=== PATIENT | male | born 1970 | race Caucasian/White ===

== ENCOUNTER 2018-02-05 06:06 | Emergency (ER) | payer BC ==
[2018-02-05] MEDS ORDERED: SODIUM CHLORIDE 0.9% 1,000 ML IV STA (06:42)
[2018-02-05] MEDS ORDERED: AZITHROMYCIN 500 MG in SODIUM CHLORIDE 0.9% 250 ML IVPB STA (06:44)
[2018-02-05] MEDS ORDERED: cefTRIAXone 2,000 MG in SODIUM CHLORIDE 0.9% 100 ML IVPB STA (06:44)
[2018-02-05] MEDS ORDERED: cefTRIAXone IN SWFI 2,000 MG/20 ML SYRINGE IVP STA (06:48)
--- NOTE | 2018-02-05 06:48 | ED ---
General Adult HPI - General Chief complaint: Dizziness Stated complaint: cough,headache Time Seen by Provider: 02/05/18 06:33 Source: patient Mode of arrival: ambulatory Limitations: no limitations - History of Present Illness Initial comments: 37 years old male has not been feeling well for the last 4 days, [address] off of work he felt feverish she was coughing he felt dizzy this morning it got worse he almost passed out he been coughing and been bringing up sputum and he is a smoker he has smoked for about 20 years now. He denies any chest pain he denies any pleuritic chest pain no abdominal pain no frequency urgency dysuria he denies any symptoms of TIA or CVA - Related Data Home Medications Medication Instructions Recorded Confirmed Dextroamphetamine/Amphetamine 15 mg PO QAM 02/05/18 02/05/18 [Adderall Xr] Previous Rx's Medication Instructions Recorded Oseltamivir [Tamiflu] 75 mg PO Q12HR #10 cap 02/05/18 Allergies Allergy/AdvReac Type Severity Reaction Status Date / Time No Known Allergies Allergy Verified 02/05/18 06:13 Review of Systems ROS Statement: Those systems with pertinent positive or pertinent negative responses have been documented in the HPI. ROS Other: All systems not noted in ROS Statement are negative. Past Medical History Past Medical History: No Reported History History of Any Multi-Drug Resistant Organisms: None Reported Past Surgical History: No Surgical Hx Reported Past Psychological History: No Psychological Hx Reported Smoking Status: Heavy tobacco smoker Past Alcohol Use History: Occasional Past Drug Use History: None Reported General Exam - General Exam Comments Initial Comments: General: The patient is awake and alert in moderate distress. Skin: Skin is warm and dry and no rashes or lesions are noted. Eye: Pupils are equal, round and reactive to light, extra-ocular movements are intact; there is normal conjunctiva bilaterally. Ears, nose, mouth and throat: There are moist mucous membranes and no oral lesions. Neck: The neck is supple, there is no tenderness or JVD. Cardiovascular: There is a regular rate and rhythm. No murmur, rub or gallop is appreciated. Respiratory: To auscultation bilateral, decreased breath sounds with a crackles at the bases, suspect pneumonia Gastrointestinal: Soft, non-distended, non-tender abdomen without masses or organomegaly noted. There is no rebound or guarding present. Bowel sounds are unremarkable. Back: There is no tenderness to palpation in the midline. There is no obvious deformity. Musculoskeletal: Normal ROM, no tenderness, There is no pedal edema. There is no calf tenderness or swelling. No cords were appreciated. Neurological: CN II-XII intact, Cranial nerves III through XII are intact. There are no obvious motor or sensory deficits. Coordination appears grossly intact. Speech is normal. Psychiatric: Cooperative, appropriate mood & affect, normal judgment. Limitations: no limitations Course Vital Signs 02/05/18 02/05/18 06:08 07:10 Temperature 100.3 F H Pulse Rate 81 Respiratory 18 18 Rate Blood Pressure 110/65 O2 Sat by Pulse 93 L Oximetry On reassessment his CBC is normal, compressive metabolic panel, troponin, EKG, chest x-ray are unremarkable noticed that he has influenza B he be gone home on a Tamiflu 75 mg twice daily and he'll follow up with the Dr. Herr, EKG Findings - EKG Comments: EKG Findings:: EKG is sinus rhythm ventricular rate is 73 CO interval is 164 QRS duration is 90 QT/QTc is 424/467 review of this EKG does not reveal any ST elevation or ST depression Medical Decision Making - Lab Data Result diagrams: 02/05/18 06:55 02/05/18 06:55 Lab Results 02/05/18 02/05/18 02/05/18 Range/Units 06:55 06:55 06:55 WBC 4.0 (3.8-10.6) k/uL RBC 4.38 (4.30-5.90) m/uL Hgb 14.4 (13.0-17.5) gm/dL Hct 41.6 (39.0-53.0) % MCV 94.9 (80.0-100.0) fL MCH 33.0 (25.0-35.0) pg MCHC 34.7 (31.0-37.0) g/dL RDW 12.4 (11.5-15.5) % Plt Count 185 (150-450) k/uL Neutrophils % 62 % Lymphocytes % 22 % Monocytes % 12 % Eosinophils % 1 % Basophils % 0 % Neutrophils # 2.5 (1.3-7.7) k/uL Lymphocytes # 0.9 L (1.0-4.8) k/uL Monocytes # 0.5 (0-1.0) k/uL Eosinophils # 0.0 (0-0.7) k/uL Basophils # 0.0 (0-0.2) k/uL Sodium 138 (137-145) mmol/L Potassium 4.6 (3.5-5.1) mmol/L Chloride 103 (98-107) mmol/L Carbon Dioxide 24 (22-30) mmol/L Anion Gap 11 mmol/L BUN 14 (9-20) mg/dL Creatinine 0.73 (0.66-1.25) mg/dL Est GFR (CKD-EPI)AfAm >90 (>60 ml/min/1.73 sqM) Est GFR (CKD-EPI)NonAf >90 (>60 ml/min/1.73 sqM) Glucose 105 H (74-99) mg/dL Plasma Lactic Acid Sohan 1.1 (0.7-2.0) mmol/L Calcium 8.7 (8.4-10.2) mg/dL Total Bilirubin 0.3 (0.2-1.3) mg/dL AST 25 (17-59) U/L ALT 27 (21-72) U/L Alkaline Phosphatase 62 (38-126) U/L Troponin I (0.000-0.034) ng/mL Total Protein 6.4 (6.3-8.2) g/dL Albumin 3.8 (3.5-5.0) g/dL Influenza Type A RNA (Not Detectd) Influenza Type B (PCR) (Not Detectd) 02/05/18 02/05/18 Range/Units 06:55 06:55 WBC (3.8-10.6) k/uL RBC (4.30-5.90) m/uL Hgb (13.0-17.5) gm/dL Hct (39.0-53.0) % MCV (80.0-100.0) fL MCH (25.0-35.0) pg MCHC (31.0-37.0) g/dL RDW (11.5-15.5) % Plt Count (150-450) k/uL Neutrophils % % Lymphocytes % % Monocytes % % Eosinophils % % Basophils % % Neutrophils # (1.3-7.7) k/uL Lymphocytes # (1.0-4.8) k/uL Monocytes # (0-1.0) k/uL Eosinophils # (0-0.7) k/uL Basophils # (0-0.2) k/uL Sodium (137-145) mmol/L Potassium (3.5-5.1) mmol/L Chloride (98-107) mmol/L Carbon Dioxide (22-30) mmol/L Anion Gap mmol/L BUN (9-20) mg/dL Creatinine (0.66-1.25) mg/dL Est GFR (CKD-EPI)AfAm (>60 ml/min/1.73 sqM) Est GFR (CKD-EPI)NonAf (>60 ml/min/1.73 sqM) Glucose (74-99) mg/dL Plasma Lactic Acid Sohan (0.7-2.0) mmol/L Calcium (8.4-10.2) mg/dL Total Bilirubin (0.2-1.3) mg/dL AST (17-59) U/L ALT (21-72) U/L Alkaline Phosphatase (38-126) U/L Troponin I <0.012 (0.000-0.034) ng/mL Total Protein (6.3-8.2) g/dL Albumin (3.5-5.0) g/dL Influenza Type A RNA Not Detected (Not Detectd) Influenza Type B (PCR) Detected H (Not Detectd) Disposition Clinical Impression: Fever, Pre-syncope, Influenza Disposition: HOME SELF-CARE Condition: Good Instructions: Dizziness (ED), Influenza (ED) Prescriptions: Oseltamivir [Tamiflu] 75 mg PO Q12HR #10 cap Is patient prescribed a controlled substance at d/c from ED?: No If prescribed controlled substance>3 days was MAPS reviewed?: No Referrals: Nemesio Saunders MD [Primary Care Provider] - 1-2 days
[2018-02-05] MEDS ORDERED: ACETAMINOPHEN TAB 500 MG TAB PO STA (07:17)
[2018-02-05 07:26] LABS: ALT 27 U/L (21-72); AST 25 U/L (17-59); Albumin 3.8 g/dL (3.5-5.0); Alkaline Phosphatase 62 U/L (38-126); Anion Gap 11 mmol/L; Blood Urea Nitrogen 14 mg/dL (9-20); Calcium 8.7 mg/dL (8.4-10.2); Carbon Dioxide 24 mmol/L (22-30); Chloride 103 mmol/L (98-107); Glucose 105 mg/dL (74-99); Potassium 4.6 mmol/L (3.5-5.1); Sodium 138 mmol/L (137-145); Total Bilirubin 0.3 mg/dL (0.2-1.3); Total Protein 6.4 g/dL (6.3-8.2)
[2018-02-05 07:31] LABS: Basophils % (A) 0 %; Eosinophils % (A) 1 %; HCT 41.6 % (39.0-53.0); HGB 14.4 gm/dL (13.0-17.5); Lymphocytes # (A) 0.9 k/uL (1.0-4.8); Lymphocytes % (A) 22 %; MCHC 34.7 g/dL (31.0-37.0); MCV 94.9 fL (80.0-100.0); Mean Platelet Volume 6.9; Monocytes # (A) 0.5 k/uL (0-1.0); Monocytes % (A) 12 %; Neutrophils # (A) 2.5 k/uL (1.3-7.7); Neutrophils % (A) 62 %; Platelet Count 185 k/uL (150-450); RBC 4.38 m/uL (4.30-5.90); RDW 12.4 % (11.5-15.5)
--- NOTE | 2018-02-05 07:49 | XR ---
EXAMINATION TYPE: XR chest 1V portable DATE OF EXAM: 02/05/2018 COMPARISON: NONE HISTORY: Cough and headache TECHNIQUE: Single frontal view of the chest is obtained. FINDINGS: Along the bronchus intermedius there is mild peribronchial cuffing. There is no focal air space opacity, pleural effusion, or pneumothorax seen. The cardiac silhouette size is within normal limits. The osseous structures are intact. IMPRESSION: No focal consolidation to suggest pneumonia. Mild peribronchial cuffing along the bronchu s intermedius that can be seen in bronchitis.
[2018-02-05] MEDS ORDERED: OSELTAMIVIR 75 MG CAP PO STA (07:51)
[2018-02-05 08:45] VITALS: BP 115/65; PULSE 78; RESP 16; TEMP 98.5
== END 2018-02-05 08:40 | disposition home or self-care (01) ==
LOC: EC 06:06
DX: J11.1 Influenza due to unidentified influenza virus with other respiratory manifestations (principal); R55 Syncope and collapse; F17.200 Nicotine dependence, unspecified, uncomplicated; Z79.899 Other long term (current) drug therapy; Z53.8 Procedure and treatment not carried out for other reasons
CPT/HCPCS: 99284; 96365; 96366; 96375; 96361; 36415; 80053; 83605; 84484; 85025; 87040; 87502; 71045; J0456; J0696

== ENCOUNTER 2019-11-06 20:18 | Emergency (ER) | payer BC, OTHER ==
[2019-11-06 20:45] VITALS: BP 146/98; PULSE 83; RESP 18; TEMP 97.9
[2019-11-06] MEDS ORDERED: FLUORESCEIN STRIPS 1 MG STRIP LEFT EYE ONE (21:35)
[2019-11-06] MEDS ORDERED: ERYTHROMYCIN 5 MG/GM OPHTH OINT 1 GM TUBE BOTH EYES STA (21:35)
[2019-11-06] MEDS ORDERED: PROPARACAINE 0.5% OPHTH DROPS 15 ML BTL BOTH EYES STA (21:35)
--- NOTE | 2019-11-06 22:18 | ED ---
Eye Problem HPI - General Chief complaint: Eye Problems Stated complaint: Metal in Eye, [facility] Time Seen by Provider: 11/06/19 21:35 Source: patient Mode of arrival: ambulatory - History of Present Illness Initial comments: Serg is a 49-year-old gentleman who presents the ER today for evaluation of foreign body sensation in the right eye. Patient reports that he was at work today when he believes he got metal in his eye he states there was a lot of debris in the air though he was wearing his safety glasses. Patient reports he immediately felt like there is something in the bottom right side of his eye but throughout the evening as well as there is also something moving around scratching his eye. Patient has a history of coronary abrasion due to metal in the eye in the past which required follow-up with ophthalmology for rest ring removal. - Related Data Home Medications Medication Instructions Recorded Confirmed Dextroamphetamine/Amphetamine 15 mg PO QAM 02/05/18 02/05/18 [Adderall Xr] Previous Rx's Medication Instructions Recorded Oseltamivir [Tamiflu] 75 mg PO Q12HR #10 cap 02/05/18 Allergies Allergy/AdvReac Type Severity Reaction Status Date / Time No Known Allergies Allergy Verified 11/06/19 20:45 Review of Systems ROS Statement: Those systems with pertinent positive or pertinent negative responses have been documented in the HPI. ROS Other: All systems not noted in ROS Statement are negative. Past Medical History Past Medical History: No Reported History History of Any Multi-Drug Resistant Organisms: None Reported Past Surgical History: No Surgical Hx Reported Past Psychological History: No Psychological Hx Reported Smoking Status: Heavy tobacco smoker Past Alcohol Use History: Occasional Past Drug Use History: None Reported General Exam - General Exam Comments Initial Comments: Physical Exam GENERAL: Patient is well-developed and well-nourished. Patient is nontoxic and well-hydrated and is in no distress. HENT: Normocephalic, Atraumatic. EYES: PERRL, EOMI For seen staining of the right eye reveals 2 distinct areas of corneal abrasion one at approximately the 8 o'clock position another at approximately the 2 o'clock position, negative Ezra sign 2 small foreign bodies were removed from the eye using a Q-tip PULMONARY: Unlabored respirations. CARDIOVASCULAR: RRR Warm and well perfused extremities ABDOMEN: Non-distended SKIN: No rashes or bruising : Deferred NEUROLOGIC: Alert and oriented Normal speech Normal gait MUSCULOSKELETAL: Moving all extremities with no apparent injury PSYCHIATRIC: No SI/HI Course Vital Signs 11/06/19 20:41 Temperature 97.9 F Pulse Rate 83 Respiratory 18 Rate Blood Pressure 146/98 O2 Sat by Pulse 97 Oximetry Medical Decision Making - Medical Decision Making The patient was seen and evaluated history is obtained from the patient history and physical exam are consistent with foreign body in the eye, 2 foreign bodies were removed from the eye forcing staining did reveal a corneal abrasion with no signs of perforation, negative Ezra sign. Patient will be treated for corneal abrasion with erythromycin ointment. Familiar with treatment plan. All questions pertaining care were answered return parameters discussed patient discharged home in stable condition. Disposition Clinical Impression: Corneal abrasion Disposition: HOME SELF-CARE Condition: Stable Instructions (If sedation given, give patient instructions): Corneal Abrasion (DC) Additional Instructions: U of a scratch to the lining of your eye, use the erythromycin ointment every 4 hours during the day while you are awake and make sure he uses it before going to bed, you do not need to wake from sleep to use this medication. Follow-up with her primary care doctor or an rebar fabricator for reevaluation in the next week Turn to the emergency department if he develops any worsening pain, vision changes, eye redness or new or concerning symptoms Is patient prescribed a controlled substance at d/c from ED?: No Referrals: Nemesio Saunders MD [Primary Care Provider] - 1-2 days
== END 2019-11-06 22:40 | disposition home or self-care (01) ==
LOC: EC 20:18
DX: T15.01XA Foreign body in cornea, right eye, initial encounter (principal); F17.200 Nicotine dependence, unspecified, uncomplicated; Z87.821 Personal history of retained foreign body fully removed; Y92.69 Other specified industrial and construction area as the place of occurrence of the external cause; Y99.0 Civilian activity done for income or pay
CPT/HCPCS: 65220; 99283

== ENCOUNTER → 2020-11-03 | Outpatient (CLI) | payer BC ==
--- NOTE | 2020-11-03 15:29 | ECHOS ---
STRESS ECHOCARDIOGRAM LUMASON: N/A Vial INDICATIONS: Dyspnea MEDICATIONS: BASELINE HEART RATE: 82 BASELINE BLOOD PRESSURE: 133/78 MAXIMUM HEART RATE: 148 MAXIMUM BLOOD PRESSURE: 213/92 85% MPHR: 144 100% MPHR: 169 METS: 10.5 MAXIMUM STAGE REACHED: III TOTAL EXERCISE TIME: 9 minutes, 6 seconds CLINICAL INFORMATION: Baseline rhythm is a sinus mechanism, rate of 82, normal axis and intervals, rare PVCs. Baseline blood pressure 133/78 mmHg. Patient exercised on Gonzalez protocol for 9 minutes 6 seconds reaching peak rate 148 beats per minute which is equal to 88% maximum predicted heart rate. Peak blood pressure 213/92 mmHg. Test was terminated secondary to fatigue. There was no chest pain. Electrocardiograph monitoring revealed no evidence of diagnostic ischemic ST deviation. Rare PVCs were noted. Baseline echocardiogram revealed normal wall motion. At peak exercise, there was normal wall motion augmentation with no hypokinesis or dyskinesis. CONCLUSION: 1. Good exercise tolerance with normal electrocardiograph response to exercise and rare PVCs. 2. Normal stress echocardiogram with no evidence of stress-induced ischemia. MMODL / IJN: [id number] /
== END | disposition home or self-care (01) ==
LOC: RADNMMAIN 09:42
PROVIDERS: ATTEND Family Medicine
DX: R06.00 Dyspnea, unspecified (principal)
CPT/HCPCS: 93351

== ENCOUNTER → 2021-06-10 | Outpatient (CLI) | payer BC ==
--- NOTE | 2021-06-10 18:01 | ECHOF ---
Referral Reason: MEASUREMENTS -------- HEIGHT: 172.7 cm WEIGHT: 74.8 kg BP: IVSd: 1.2 cm (0.6 - 1.1) LVIDd: 4.7 cm (3.9 - 5.3) LVPWd: 1.4 cm (0.6 - 1.1) EDV(Teich): 101 ml IVSs: 1.5 cm LVIDs: 2.8 cm LVPWs: 2.1 cm %IVS Thck: 26 % ESV(Teich): 28 ml EF(Teich): 72 % %FS: 41 % SV(Teich): 72 ml RVIDd: 2.8 cm (< 3.3) IVC: 13.00 mm LALs A4C: 4.9 cm LAAs A4C: 13.6 cm LAESV A-L A4C: 32 ml LAESV MOD A4C: 30 ml LALs A2C: 4.6 cm LAAs A2C: 15.8 cm LAESV A-L A2C: 46 ml LAESV MOD A2C: 44 ml LAESV(A-L): 39 ml LAESV Index (A-L): 20.94 ml/m Ao Diam: 3.4 cm (2.0 - 3.7) LA Diam: 3.3 cm (2.7 - 3.8) AV Cusp: 2.4 cm (1.5 - 2.6) EPSS: 0.3 cm MV E Adria: 0.55 m/s MV DecT: 161 ms MV Dec Merced: 3.4 m/s MV A Adria: 0.77 m/s MV E/A Ratio: 0.72 MV PHT: 47 ms LVOT Vmax: 1.03 m/s LVOT maxP.21 mmHg AV Vmax: 1.40 m/s AV maxP.81 mmHg TR Vmax: 2.11 m/s TR maxP.79 mmHg RAP: 5.00 mmHg RVSP: 22.79 mmHg MV EF SLOPE: 212.22 mm/s (70 - 150) MV EXCURSION: 29.98 mm (> 18.000) FINDINGS -------- Sinus rhythm. This was a technically adequate study. The left ventricular size is normal. There is mild concentric left ventricular hypertrophy. Overa ll left ventricular systolic function is normal with, an EF between 55 - 60 %. The diastolic fillin g pattern is normal for the age of the patient 5.64. The right ventricle is normal in size. Normal LA size by volume 22+/-6 ml/m2. The right atrial size is normal. Mobile interatrial septum. The aortic valve is trileaflet and appears structurally normal. There is no evidence of aortic regu rgitation. There is no evidence of aortic stenosis. No mitral regurgitation. Mild tricuspid regurgitation present. There is no evidence of pulmonary hypertension. The right v entricular systolic pressure, as measured by Doppler, is 22.79mmHg. There is no pulmonic regurgitation present. The aortic root size is normal. The hepatic veins were not well visualized. There is no pericardial effusion. CONCLUSIONS -------- 1. The left ventricular size is normal. 2. There is mild concentric left ventricular hypertrophy. 3. Overall left ventricular systolic function is normal with, an EF between 55 - 60 %. 4. The diastolic filling pattern is normal for the age of the patient 5.64 5. Mild tricuspid regurgitation present. SPRAYING MACHINE OPERATOR: Lisbet Aceves RDCS
== END | disposition home or self-care (01) ==
LOC: RADECHMAIN 14:35
PROVIDERS: ATTEND Family Medicine
DX: I07.1 Rheumatic tricuspid insufficiency (principal)
CPT/HCPCS: 93306

== ENCOUNTER 2022-10-06 20:04 | Emergency (ER) | payer BC ==
[2022-10-06 20:07] VITALS: RESP 16; TEMP 98
[2022-10-06 20:59] LABS: Basophils # (A) 0.1 k/uL (0-0.2); Basophils % (A) 1 %; Eosinophils # (A) 0.4 k/uL (0-0.7); Eosinophils % (A) 6 %; HCT 39.8 % (39.0-53.0); HGB 14.4 gm/dL (13.0-17.5); Lymphocytes # (A) 2.1 k/uL (1.0-4.8); Lymphocytes % (A) 33 %; MCH 35.3 pg (25.0-35.0); MCHC 36.3 g/dL (31.0-37.0); MCV 97.3 fL (80.0-100.0); Mean Platelet Volume 7.7; Monocytes # (A) 0.5 k/uL (0-1.0); Monocytes % (A) 8 %; Neutrophils # (A) 3.1 k/uL (1.3-7.7); Neutrophils % (A) 49 %; Platelet Count 259 k/uL (150-450); RBC 4.09 m/uL (4.30-5.90); RDW 12.3 % (11.5-15.5); WBC 6.2 k/uL (3.8-10.6)
[2022-10-06] MEDS ORDERED: ASPIRIN 81 MG PO STA (21:00)
--- NOTE | 2022-10-06 21:00 | ED ---
General Adult HPI - General Chief complaint: Chest Pain Stated complaint: Chest pain Time Seen by Provider: 10/06/22 20:18 Source: patient, family Mode of arrival: ambulatory Limitations: no limitations - History of Present Illness Initial comments: Dictation was produced using [employer] dictation software. please excuse any grammatical, word or spelling errors. Chief Complaint: 52-year-old male presents emergency department for intermittent episodes of chest pain History of Present Illness: 52-year-old male presents emergency Department with 1 week of intermittent episodes of chest pain states it's a pressure-like sensation to his substernal area. He does complain of associated paresthesias to the bilateral hands. Patient states that he's been having flulike symptoms recently. Patient denies that his pain is worse with deep inspiration. Does have family history of cardiac disease. Patient denies any medical problems. The ROS documented in this emergency department record has been reviewed and confirmed by me. Those systems with pertinent positive or negative responses have been documented in the HPI. All other systems are other negative and/or noncontributory. PHYSICAL EXAM: General Impression: Alert and oriented x3, not in acute distress HEENT: Normocephalic atraumatic, extra-ocular movements intact, pupils equal and reactive to light bilaterally, mucous membranes moist. Cardiovascular: Heart regular rate and rhythm Chest: Able to complete full sentences, no retractions, no tachypnea Abdomen: abdomen soft, non-tender, non-distended, no organomegaly Musculoskeletal: Pulses present and equal in all extremities, no peripheral edema Motor: no focal deficits noted Neurological: CN II-XII grossly intact, no focal motor or sensory deficits noted Skin: Intact with no visualized rashes Psych: Normal affect and mood ED course: 52-year-old well-appearing male presents to the ER for those worrisome for acute coronary syndrome. Vital signs upon arrival are within acceptable limits. Nursing notes and chart review was performed My EKG interpretation: Ventricular rate 84, normal sinus rhythm,. 150, QRS 90, QTc 434. No MD prolongation, no QTC prolongation, no ST or T-wave changes noted. EKG compared to 02/05/2018 showing no changes. Overall, this EKG is unremarkable Disposition options were discussed with patient. Was recommended to him to be admitted for cardiac observation, so troponins and cardiology consultation. Patient refuses and would like to go home. He understands the risk of being discharged. Patient at the bedside is well-appearing. He has no chest pain. Patient understands that he should seek immediate medical attention for any recurrence of chest pain, shortness of breath especially if associated with diaphoresis and nausea. Advised to follow up with primary care doctor. Given referral to cardiology. - Related Data Home Medications Medication Instructions Recorded Confirmed Dextroamphetamine/Amphetamine 15 mg PO QAM 02/05/18 02/05/18 [Adderall Xr] Previous Rx's Medication Instructions Recorded Oseltamivir [Tamiflu] 75 mg PO Q12HR #10 cap 02/05/18 Allergies Allergy/AdvReac Type Severity Reaction Status Date / Time No Known Allergies Allergy Verified 11/06/19 20:45 Review of Systems ROS Statement: Those systems with pertinent positive or pertinent negative responses have been documented in the HPI. ROS Other: All systems not noted in ROS Statement are negative. Past Medical History Past Medical History: No Reported History History of Any Multi-Drug Resistant Organisms: None Reported Past Surgical History: No Surgical Hx Reported Past Psychological History: No Psychological Hx Reported Past Alcohol Use History: Occasional Past Drug Use History: None Reported General Exam Limitations: no limitations Course Vital Signs 10/06/22 10/06/22 20:05 21:07 Temperature 98 F Pulse Rate 94 82 Respiratory 16 16 Rate Blood Pressure 124/79 110/74 O2 Sat by Pulse 95 96 Oximetry Medical Decision Making - Lab Data Result diagrams: 10/06/22 20:26 10/06/22 20:26 Lab Results 10/06/22 10/06/22 10/06/22 Range/Units 20:26 20:26 20:26 WBC 6.2 (3.8-10.6) k/uL RBC 4.09 L (4.30-5.90) m/uL Hgb 14.4 (13.0-17.5) gm/dL Hct 39.8 (39.0-53.0) % MCV 97.3 (80.0-100.0) fL MCH 35.3 H (25.0-35.0) pg MCHC 36.3 (31.0-37.0) g/dL RDW 12.3 (11.5-15.5) % Plt Count 259 (150-450) k/uL MPV 7.7 Neutrophils % 49 % Lymphocytes % 33 % Monocytes % 8 % Eosinophils % 6 % Basophils % 1 % Neutrophils # 3.1 (1.3-7.7) k/uL Lymphocytes # 2.1 (1.0-4.8) k/uL Monocytes # 0.5 (0-1.0) k/uL Eosinophils # 0.4 (0-0.7) k/uL Basophils # 0.1 (0-0.2) k/uL PT 9.7 (9.0-12.0) sec INR 0.9 (<1.2) APTT 22.7 (22.0-30.0) sec Sodium 138 (137-145) mmol/L Potassium 4.3 (3.5-5.1) mmol/L Chloride 106 (98-107) mmol/L Carbon Dioxide 22 (22-30) mmol/L Anion Gap 10 mmol/L BUN 17 (9-20) mg/dL Creatinine 0.71 (0.66-1.25) mg/dL Est GFR (CKD-EPI)AfAm >90 (>60 ml/min/1.73 sqM) Est GFR (CKD-EPI)NonAf >90 (>60 ml/min/1.73 sqM) Glucose 110 H (74-99) mg/dL Calcium 8.8 (8.4-10.2) mg/dL Magnesium 2.2 (1.6-2.3) mg/dL Total Bilirubin 0.2 (0.2-1.3) mg/dL AST 29 (17-59) U/L ALT 24 (4-49) U/L Alkaline Phosphatase 59 (38-126) U/L Troponin I (0.000-0.034) ng/mL Total Protein 6.5 (6.3-8.2) g/dL Albumin 4.1 (3.5-5.0) g/dL 10/06/22 Range/Units 20:26 WBC (3.8-10.6) k/uL RBC (4.30-5.90) m/uL Hgb (13.0-17.5) gm/dL Hct (39.0-53.0) % MCV (80.0-100.0) fL MCH (25.0-35.0) pg MCHC (31.0-37.0) g/dL RDW (11.5-15.5) % Plt Count (150-450) k/uL MPV Neutrophils % % Lymphocytes % % Monocytes % % Eosinophils % % Basophils % % Neutrophils # (1.3-7.7) k/uL Lymphocytes # (1.0-4.8) k/uL Monocytes # (0-1.0) k/uL Eosinophils # (0-0.7) k/uL Basophils # (0-0.2) k/uL PT (9.0-12.0) sec INR (<1.2) APTT (22.0-30.0) sec Sodium (137-145) mmol/L Potassium (3.5-5.1) mmol/L Chloride (98-107) mmol/L Carbon Dioxide (22-30) mmol/L Anion Gap mmol/L BUN (9-20) mg/dL Creatinine (0.66-1.25) mg/dL Est GFR (CKD-EPI)AfAm (>60 ml/min/1.73 sqM) Est GFR (CKD-EPI)NonAf (>60 ml/min/1.73 sqM) Glucose (74-99) mg/dL Calcium (8.4-10.2) mg/dL Magnesium (1.6-2.3) mg/dL Total Bilirubin (0.2-1.3) mg/dL AST (17-59) U/L ALT (4-49) U/L Alkaline Phosphatase (38-126) U/L Troponin I <0.012 (0.000-0.034) ng/mL Total Protein (6.3-8.2) g/dL Albumin (3.5-5.0) g/dL Disposition Clinical Impression: Chest pain Disposition: HOME SELF-CARE Condition: Fair Instructions (If sedation given, give patient instructions): Chest Pain (ED) Is patient prescribed a controlled substance at d/c from ED?: No Referrals: Nemesio Saunders MD [Primary Care Provider] - 1-2 days Perfecto Hermosillo DO [STAFF PHYSICIAN] - 1-2 days Time of Disposition: 21:49
[2022-10-06 21:09] LABS: INR 0.9 (<1.2); Partial Thromboplastin Time 22.7 sec (22.0-30.0); Prothrombin Time 9.7 sec (9.0-12.0)
[2022-10-06 21:19] LABS: ALT 24 U/L (4-49); AST 29 U/L (17-59); African American GFR (CKD) >90 (>60 ml/min/1.73 sqM); Albumin 4.1 g/dL (3.5-5.0); Alkaline Phosphatase 59 U/L (38-126); Anion Gap 10 mmol/L; Blood Urea Nitrogen 17 mg/dL (9-20); Calcium 8.8 mg/dL (8.4-10.2); Carbon Dioxide 22 mmol/L (22-30); Chloride 106 mmol/L (98-107); Glucose 110 mg/dL (74-99); Magnesium 2.2 mg/dL (1.6-2.3); Non-African American GFR(CKD) >90 (>60 ml/min/1.73 sqM); Potassium 4.3 mmol/L (3.5-5.1); Sodium 138 mmol/L (137-145); Total Bilirubin 0.2 mg/dL (0.2-1.3); Total Protein 6.5 g/dL (6.3-8.2)
--- NOTE | 2022-10-06 21:22 | XR ---
EXAMINATION TYPE: XR chest 2V DATE OF EXAM: 10/06/2022 COMPARISON: 02/05/2018 HISTORY: Chest pain TECHNIQUE: FINDINGS: Heart is normal. Lungs are clear. Diaphragm is normal. Bony thorax appears normal. There ar e chest leads. IMPRESSION: Normal chest. No change.
[2022-10-06 21:25] VITALS: BP 110/74; PULSE 82
== END 2022-10-06 22:11 | disposition home or self-care (01) ==
LOC: EC 20:04
DX: R07.9 Chest pain, unspecified (principal)
CPT/HCPCS: 36415; 71046; 80053; 83735; 84484; 85025; 85610; 85730; 93005; 99285